=== PATIENT | male | born 1960 | race Caucasian/White ===

== ENCOUNTER 2017-01-04 09:17 | Emergency (ER) | payer OTHER ==
--- NOTE | 2017-01-04 10:29 | ER Document Report ---
HPI - HPI Patient complains to provider of: right hip pain Onset: Yesterday Onset/Duration: Gradual Pain Level: 5 Context: 56-year-old male with chronic right hip pain, exacerbated yesterday by going down and stumbling on 2 stairs. He has a total left hip replacement by Dr. Olsen in [place] and he plans on seeing him on to recheck the right hip. The patient does not think it's broken. Associated Symptoms: None Exacerbated by: Walking Relieved by: Denies Similar symptoms previously: Yes Recently seen / treated by doctor: No - ROS ROS below otherwise negative: Yes Systems Reviewed and Negative: Yes All other systems reviewed and negative - DERM Skin Color: Normal Past Medical History - General Information source: Patient - Social History Smoking Status: Never Smoker Chew tobacco use (# tins/day): No Frequency of alcohol use: None Drug Abuse: None Lives with: Family Family History: Reviewed & Not Pertinent Patient has suicidal ideation: No Patient has homicidal ideation: No - Past Medical History Cardiac Medical History: Reports: Hx Hypercholesterolemia, Hx Hypertension Renal/ Medical History: Denies: Hx Peritoneal Dialysis Musculoskeltal Medical History: Reports Hx Arthritis Past Surgical History: Reports: Hx Orthopedic Surgery - L hip pain - Immunizations Hx Diphtheria, Pertussis, Tetanus Vaccination: Yes Vertical Provider Document - CONSTITUTIONAL Agree With Documented VS: Yes Exam Limitations: No Limitations - INFECTION CONTROL TRAVEL OUTSIDE OF THE [place] IN LAST 30 DAYS: No - HEENT HEENT: Normocephalic - NECK Neck: Supple - RESPIRATORY O2 Sat by Pulse Oximetry: 97 - MUSCULOSKELETAL/EXTREMETIES Musculoskeletal/Extremeties: MAEW, FROM, Tender - right lateral hip below the great trochantur, soft tissue, no jen tenderness Notes: no pain with internal, external ROM - NEURO Level of Consciousness: Awake, Alert Motor/Sensory: No Motor Deficit, No Sensory Deficit - DERM Integumentary: Warm, Dry Course - Vital Signs Vital signs: Temp Pulse Resp BP Pulse Ox 98.8 F 72 18 167/92 H 97 01/04/17 09:23 01/04/17 09:23 01/04/17 09:23 01/04/17 09:23 01/04/17 09:23 Discharge - Discharge Clinical Impression: Strain of right hip Qualifiers: Encounter type: initial encounter Qualified Code(s): S76.011A - Strain of muscle, fascia and tendon of right hip, initial encounter Condition: Good Disposition: HOME, SELF-CARE Instructions: Arthralgia ([facility]), Myalagia (Muscle Pain) ([facility]) Additional Instructions: see dr olsen on as planned to er if worse Please complete the patient satisfaction survey if you get one, and return it.. If you do not receive a survey, then you can go to the [facility] website, [email or web address] and place your comments about your very good care. Thank you very much. It was a pleasure being your medical provider today. Prescriptions: Oxycodone HCl/Acetaminophen [Percocet 10-325 Mg Tablet] 1 each PO Q4HP PRN #15 tablet PRN Reason: Referrals: CHRISTIANE MENDOZA PA [Primary Care Provider] - Follow up as needed
[2017-01-04 11:11] VITALS: BP 155/85
== END 2017-01-04 11:11 | disposition home or self-care (01) ==
LOC: ER 09:17
DX: S76.011A Strain of muscle, fascia and tendon of right hip, initial encounter (principal); W10.9XXA Fall (on) (from) unspecified stairs and steps, initial encounter; Z96.641 Presence of right artificial hip joint; E78.00 Pure hypercholesterolemia, unspecified; I10 Essential (primary) hypertension
CPT/HCPCS: 99283

== ENCOUNTER 2017-06-08 09:38 | Emergency (ER) | payer OTHER ==
[2017-06-08 10:06] VITALS: BP 144/82
--- NOTE | 2017-06-08 10:53 | RADIOLOGY REPORT (SQ) ---
EXAM DESCRIPTION: HIP RIGHT AP/LATERAL COMPLETED DATE/TIME: 06/08/2017 10:40 am REASON FOR STUDY: fall/pain COMPARISON: None. NUMBER OF VIEWS: Two views. TECHNIQUE: AP pelvis and additional frog-leg view of the right hip. LIMITATIONS: None. FINDINGS: MINERALIZATION: Normal. RIGHT HIP: No fracture or dislocation. No worrisome bone lesions. LEFT HIP: Left hip arthroplasty in good position. PUBIS AND ISCHIUM: No fracture. PELVIS: No fracture. SACRUM: No fracture or dislocation. No worrisome bone lesions. LOWER LUMBAR SPINE: No fracture or dislocation. No worrisome bone lesions. No significant disc disea se. SOFT TISSUES: No findings. OTHER: No other significant finding. IMPRESSION: NEGATIVE STUDY OF THE RIGHT HIP. NO RADIOGRAPHIC EVIDENCE OF ACUTE INJURY. TECHNICAL DOCUMENTATION: JOB ID: [id number] [employer]- All Rights Reserved
[2017-06-08] MEDS ORDERED: LIDOCAINE 5% (700 MG) TRANSDERMAL ADH..PATCH TP ONE (11:45)
--- NOTE | 2017-06-08 11:45 | ER Document Report ---
ED General - General Chief Complaint: Hip Pain Stated Complaint: PAIN FROM FALL Time Seen by Provider: 06/08/17 10:12 TRAVEL OUTSIDE OF THE [place] IN LAST 30 DAYS: No - HPI Patient complains to provider of: Right hip pain Notes: Patient coming in for evaluation of right hip pain. Patient states walking 1999 he tripped over and falling down a few stairs landing on his right hip. Patient states he has chronic right hip pain and is evaluated by a local orthopedist and does receive multiple steroid injections states that the father calls with her orthopedic doctor to come to the ER for pain control and that his orthopedic doctor will see him later next week. Patient states he is due for total hip replacement. Patient has a total hip replacement on the left. States ambulatory after the fall states increased pain from his normal however is having some popping and clicking of his hip which is normal. Denies any loss consciousness or other any traumatic events. - Related Data Allergies/Adverse Reactions: No Known Allergies Allergy (Verified 06/08/17 10:03) Home Medications: Current Home Medications Amlodipine Besylate [Norvasc 10 mg Tablet] 2 tab PO DAILY 06/08/17 [History] Past Medical History - Social History Smoking Status: Never Smoker Chew tobacco use (# tins/day): No Frequency of alcohol use: None Drug Abuse: None Family History: Reviewed & Not Pertinent Patient has suicidal ideation: No Patient has homicidal ideation: No - Past Medical History Cardiac Medical History: Reports: Hx Hypercholesterolemia, Hx Hypertension Renal/ Medical History: Denies: Hx Peritoneal Dialysis Musculoskeltal Medical History: Reports Hx Arthritis Past Surgical History: Reports: Hx Orthopedic Surgery - L hip - Immunizations Hx Diphtheria, Pertussis, Tetanus Vaccination: Yes Review of Systems - Review of Systems Constitutional: No symptoms reported EENT: No symptoms reported Cardiovascular: No symptoms reported Respiratory: No symptoms reported Gastrointestinal: No symptoms reported Genitourinary: No symptoms reported Male Genitourinary: No symptoms reported Musculoskeletal: Other - leg pain Skin: No symptoms reported Hematologic/Lymphatic: No symptoms reported Neurological/Psychological: No symptoms reported -: Yes All other systems reviewed and negative Physical Exam - Vital signs Vitals: Temp Pulse Resp BP Pulse Ox 97.5 F 73 18 144/82 H 98 06/08/17 10:03 06/08/17 10:03 06/08/17 10:03 06/08/17 10:03 06/08/17 10:03 Interpretation: Normal - General General appearance: Appears well, Alert - HEENT Head: Normocephalic, Atraumatic Eyes: Normal Pupils: PERRL - Respiratory Respiratory status: No respiratory distress Chest status: Nontender Breath sounds: Normal Chest palpation: Normal - Cardiovascular Rhythm: Regular Heart sounds: Normal auscultation Murmur: No - Abdominal Inspection: Normal Distension: No distension Bowel sounds: Normal Tenderness: Nontender Organomegaly: No organomegaly - Back Back: Normal, Nontender - Extremities General upper extremity: Normal inspection, Nontender, Normal color, Normal ROM , Normal temperature General lower extremity: Normal inspection, Tender - Tenderness to palpation mild of the right hip, Normal color, Normal ROM, Normal temperature, Normal weight bearing. No: Clotilde's sign - Neurological Neuro grossly intact: Yes Cognition: Normal Orientation: AAOx4 Yoder Coma Scale Eye Opening: Spontaneous Caitlin Coma Scale Verbal: Oriented Yoder Coma Scale Motor: Obeys Commands Yoder Coma Scale Total: 15 Speech: Normal Motor strength normal: LUE, RUE, LLE, RLE Sensory: Normal - Psychological Associated symptoms: Normal affect, Normal mood - Skin Skin Temperature: Warm Skin Moisture: Dry Skin Color: Normal Course - Re-evaluation Re-evalutation: 06/08/17 15:03 X-ray is negative for any signs of acute fracture. Evaluation of the right hip does show tenderness to palpation however mild deformity patient does have otherwise minimally tender range of motion passive and active. Patient will be given pain medication for home encouraged follow-up with her orthopedic doctor for further evaluation. - Vital Signs Vital signs: Temp Pulse Resp BP Pulse Ox 97.5 F 73 18 144/82 H 98 06/08/17 10:03 06/08/17 10:03 06/08/17 10:03 06/08/17 10:03 06/08/17 10:03 Discharge - Discharge Clinical Impression: Right hip pain Condition: Good Disposition: HOME, SELF-CARE Instructions: Arthralgia ([facility]), Contusion ([facility]), Oral Narcotic Medication ([facility]) Additional Instructions: Take medication as prescribed. Return to the ER symptoms worsen. Follow-up with your primary care physician. Your x-ray today does not show any signs of fracture. Prescriptions: Oxycodone HCl 5 mg PO Q6 #15 tablet
== END 2017-06-08 12:15 | disposition home or self-care (01) ==
LOC: ER 09:38
DX: M25.551 Pain in right hip (principal); W10.9XXA Fall (on) (from) unspecified stairs and steps, initial encounter; Y92.007 Garden or yard of unspecified non-institutional (private) residence as the place of occurrence of the external cause; G89.29 Other chronic pain; I10 Essential (primary) hypertension; Z96.642 Presence of left artificial hip joint
CPT/HCPCS: 99283

== ENCOUNTER 2017-07-15 09:14 | Emergency (ER) | payer OTHER ==
--- NOTE | 2017-07-15 09:34 | ER Document Report ---
ED General - General Chief Complaint: Fall Injury Stated Complaint: FALL/HIP PAIN Time Seen by Provider: 07/15/17 09:32 Mode of Arrival: Wheelchair Information source: Patient Notes: Patient is a 56-year-old male with a history of chronic hip pain and left hip replacement presents with right hip pain after he fell while stepping in a hole getting the newspaper this morning. He denies hitting his head or loss of consciousness. He was ambulatory after the fall. He states his pain is typically a 4 out of 10 but today as an 8 out of 10. He has not taken any pain medication for this. He denies any deformity, swelling or bruising. He states he is followed by Dr. Crawford at orthopedics and he called their office this morning and was told he needed to be seen in the emergency department but has a follow-up appointment next . His past medical history includes hypertension and he did take his medications this morning. TRAVEL OUTSIDE OF THE [place] IN LAST 30 DAYS: No - Related Data Allergies/Adverse Reactions: No Known Allergies Allergy (Verified 06/08/17 10:03) Past Medical History - General Information source: Patient - Social History Smoking Status: Never Smoker Family History: Reviewed & Not Pertinent - Past Medical History Cardiac Medical History: Reports: Hx Hypercholesterolemia, Hx Hypertension Renal/ Medical History: Denies: Hx Peritoneal Dialysis Musculoskeltal Medical History: Reports Hx Arthritis Past Surgical History: Reports: Hx Orthopedic Surgery - L hip - Immunizations Hx Diphtheria, Pertussis, Tetanus Vaccination: Yes Review of Systems - Review of Systems Constitutional: No symptoms reported EENT: No symptoms reported Cardiovascular: No symptoms reported Respiratory: No symptoms reported Gastrointestinal: No symptoms reported Genitourinary: No symptoms reported Male Genitourinary: No symptoms reported Musculoskeletal: See HPI Skin: No symptoms reported Hematologic/Lymphatic: No symptoms reported Neurological/Psychological: See HPI Physical Exam - Vital signs Vitals: Temp Pulse BP Pulse Ox 97.5 F 73 154/83 H 96 07/15/17 09:21 07/15/17 09:21 07/15/17 09:21 07/15/17 09:21 Interpretation: Hypertensive - Notes Notes: PHYSICAL EXAM: CONSTITUTIONAL: Alert and oriented, well-appearing and in no acute distress. HENT: Normocephalic, atraumatic. Moist mucous membranes. EYES: Pupils equal round and reactive to light, EOM intact. Sclera anicteric, conjunctiva are normal. No entrapment. NECK: supple without lymphadenopathy. No midline tenderness or paraspinous muscle spasms. No step-offs or deformities. ROM intact. HEART: Regular rate and rhythm without murmurs. LUNGS: CTAB and equal. No wheezes, rales or rhonchi. BACK: nontender, no paraspinous spasm, 5+/5 strengths, DTRs 2+, SLR -. EXTREMITIES: Right hip - tender to palpation to greater trochanteric region without deformity, edema, effusion, erythema. Normal range of motion, no pitting edema. No cyanosis. Cap Refill <3 seconds. NEURO: Cranial nerves grossly intact. Normal sensory/motor exams. PSYCH: Normal mood, normal affect. SKIN: Warm and dry. Normal turgor. No rashes or lesions noted. Course - Re-evaluation Re-evalutation: 07/15/17 09:34 Patient seen and examined. No obvious deformity, will give PO pain medication here and obtain xrays. 07/15/17 10:16 Reviewed imaging studies which were negative for fracture dislocation of the right hip. Right hip does appear osteopenic. Discussed results with patient. Will send home a prescription for pain medication and advised to keep follow-up appointment next week with orthopedics. At this time, will discharge with return precautions and follow-up recommendations. Verbal discharge instructions given at the bedside and opportunity for questions given. Medication warnings reviewed. Patient is in agreement with this plan and has verbalized understanding of return precautions and the need for primary care follow-up in the next 24-72 hours. - Vital Signs Vital signs: Temp Pulse Resp BP Pulse Ox 97.5 F 73 154/83 H 96 07/15/17 09:21 07/15/17 09:21 07/15/17 09:21 07/15/17 09:21 - Diagnostic Test Radiology reviewed: Image reviewed, Reports reviewed Discharge - Discharge Clinical Impression: Contusion of right hip, initial encounter Fall, accidental Qualifiers: Encounter type: initial encounter Qualified Code(s): W19.XXXA - Unspecified fall, initial encounter Osteopenia Qualifiers: Osteopenia location: lower leg Laterality: right Qualified Code(s): M85.861 - Other specified disorders of bone density and structure, right lower leg Condition: Stable Disposition: HOME, SELF-CARE Additional Instructions: Your xrays today were negative for acute fracture or dislocation. We have provided you a prescription for pain medication, do not drink or drive while taking this medication. Please follow-up with orthopedics as previously scheduled. Prescriptions: Hydrocodone/Acetaminophen [Vicodin 5-300 mg Tablet] 1 tab PO ASDIR PRN #12 tab PRN Reason: Forms: Elevated Blood Pressure Referrals: EARL CRAWFORD MD [ASSOCIATE] - Follow up in 1 week
[2017-07-15] MEDS ORDERED: NAPROXEN 250 MG TABLET PO ONE (09:43)
--- NOTE | 2017-07-15 10:07 | RADIOLOGY REPORT (SQ) ---
EXAM DESCRIPTION: HIP RIGHT AP/LATERAL COMPLETED DATE/TIME: 07/15/2017 9:57 am REASON FOR STUDY: s/p fall COMPARISON: 03/08/2016, 06/08/2017 NUMBER OF VIEWS: Two views. TECHNIQUE: AP pelvis and additional frog-leg view of the right hip. LIMITATIONS: None. FINDINGS: MINERALIZATION: Osteopenic RIGHT HIP: No fracture or dislocation. Very mild joint space narrowing. Moderate acetabular rim bon y spurring. LEFT HIP: Left hip replacement with anchoring acetabular screws. No lucency around the hardware worr isome for loosening. Crystal parent artery femoral prosthesis is not included in the field of view. PUBIS AND ISCHIUM: No fracture. PELVIS: No fracture. SACRUM: No fracture or dislocation. No worrisome bone lesions. LOWER LUMBAR SPINE: No fracture or dislocation. No worrisome bone lesions. No significant disc disea se. SOFT TISSUES: No findings. OTHER: No other significant finding. IMPRESSION: No acute changes TECHNICAL DOCUMENTATION: JOB ID: [id number] [employer]- All Rights Reserved
[2017-07-15 10:27] VITALS: BP 150/92
== END 2017-07-15 10:28 | disposition home or self-care (01) ==
LOC: ER 09:14
DX: G89.29 Other chronic pain (principal); S70.01XA Contusion of right hip, initial encounter; M25.551 Pain in right hip; M85.861 Other specified disorders of bone density and structure, right lower leg; W17.2XXA Fall into hole, initial encounter; E78.00 Pure hypercholesterolemia, unspecified; I10 Essential (primary) hypertension; Z96.642 Presence of left artificial hip joint
CPT/HCPCS: 99283